=== PATIENT | female | born 1985 | race American Indian/Alaskan Native ===

== ENCOUNTER 2016-09-02 12:43 | Emergency (ER) | payer OTHER ==
[2016-09-02 13:38] VITALS: BP 144/90; PULSE 75; RESP 20; TEMP 98.3; O2SAT 98
--- NOTE | 2016-09-02 14:07 | C.PDOC ---
History Of Present Illness 31 yr old female presents to the ER for suture removal. Patient states 1 month ago she had a tummy tuck and liposuction done in [place] and was told by the surgeon to go to any ER for suture removal. Patient denies fever, chest pain, SOB, nausea, vomiting, abdominal pain, diarrhea, drainage from the area, back pain, weakness or numbness. Time Seen by Provider: 09/02/16 13:49 Chief Complaint (Nursing): Wound Check History Per: Patient History/Exam Limitations: no limitations Onset/Duration Of Symptoms: Days Ago (1 month ago) Past Medical History Reviewed: Historical Data, Nursing Documentation, Vital Signs Vital Signs: Last Vital Signs Temp 98.3 F 09/02/16 13:36 Pulse 75 09/02/16 13:36 Resp 20 09/02/16 13:36 BP 144/90 09/02/16 13:36 Pulse Ox 98 09/02/16 14:07 - Medical History PMH: Gall Bladder Disease (Gallstones) Surgical History: Cholecystectomy (04/2016) Family History: States: No Known Family Hx - Social History Hx Tobacco Use: No Hx Alcohol Use: Yes Hx Substance Use: No - Immunization History Hx Tetanus Toxoid Vaccination: No Hx Influenza Vaccination: Yes Hx Pneumococcal Vaccination: No Review Of Systems Except As Marked, All Systems Reviewed And Found Negative. Constitutional: Negative for: Fever Cardiovascular: Negative for: Chest Pain Respiratory: Negative for: Shortness of Breath Gastrointestinal: Negative for: Nausea, Vomiting, Abdominal Pain, Diarrhea Musculoskeletal: Negative for: Back Pain Skin: Positive for: Other (Suture removal for tummy tuck ) Neurological: Negative for: Weakness, Numbness Physical Exam - Physical Exam Appears: Non-toxic, No Acute Distress Skin: Warm, Dry, No Rash, Other (iliac crest surgical wound, subcuticular stitchs. At the right lateral 6in black wire like loop. No distal or exposed. Back - 4 area of puncture wound where the liposuction was done. ) Head: Atraumatic, Normacephalic Oral Mucosa: Moist Neck: Normal, Normal ROM, Supple Chest: Symmetrical, No Tenderness Cardiovascular: Rhythm Regular, No Murmur Respiratory: Normal Breath Sounds, No Rales, No Rhonchi, No Stridor, No Wheezing Gastrointestinal/Abdominal: Normal Exam, Soft, No Tenderness, No Guarding, No Rebound Extremity: Normal ROM, No Swelling Neurological/Psych: Oriented x3, Normal Speech, Normal Motor ED Course And Treatment O2 Sat by Pulse Oximetry: 98 Disposition - Disposition Referrals: Barry Tejada DO [Staff Provider] - Disposition: HOME/ ROUTINE Disposition Time: 14:05 Condition: GOOD Additional Instructions: Follow up with Surgeon for removal of the "stuck stich" - Clinical Impression Clinical Impression: Visit for suture removal, Encounter for evaluation of wound - Scribe Statement The provider has reviewed the documentation as recorded by the Alexisibrupinder Pinon Provider Attestation: All medical record entries made by the Jordan were at my direction and personally dictated by me. I have reviewed the chart and agree that the record accurately reflects my personal performance of the history, physical exam, medical decision making, and the department course for this patient. I have also personally directed, reviewed, and agree with the discharge instructions and disposition.
== END 2016-09-02 15:07 | disposition home or self-care (01) ==
LOC: C.ER 12:43
DX: Z48.01 Encounter for change or removal of surgical wound dressing (principal)

== ENCOUNTER 2016-11-15 17:02 | Emergency (ER) | payer OTHER ==
[2016-11-15 17:29] VITALS: RESP 18
[2016-11-15 17:51] LABS: RBC URINE 2 /hpf (0-3); URINE BACTERIA RARE (<OCC); URINE BILIRUBIN NEGATIVE (NEGATIVE); URINE BLOOD NEGATIVE (NEGATIVE); URINE COLOR Yellow (YELLOW); URINE GLUCOSE (UA) NORMAL (Normal); URINE KETONE NEGATIVE (NEGATIVE); URINE LEUKOCYTE ESTERASE 1+ Leu/uL (Negative); URINE PROTEIN NEGATIVE (NEGATIVE); URINE UROBILINOGEN NORMAL mg/dL (0.2-1.0); WBC URINE 3 /hpf (0-5)
--- NOTE | 2016-11-15 18:44 | C.PDOC ---
History Of Present Illness The patient, a 31 y/o male, presents to the ED for evaluation of foul-smelling vaginal discharge which began around 3 days ago. Patient notes experiencing similar episode in the past and she was treated for BV at that time. Patient denies fever, chills, back pain, abdominal pain, nausea, vomiting, hematuria, dysuria. She notes she has been sexually active with one partner without protection, partner has no complaints of discharge. . Time Seen by Provider: 11/15/16 17:42 Chief Complaint (Nursing): Female Genitourinary History Per: Patient History/Exam Limitations: no limitations Onset/Duration Of Symptoms: Days (3) Current Symptoms Are (Timing): Still Present Associated Symptoms: denies: Fever, Chills Past Medical History Vital Signs: Last Vital Signs Temp 98.6 F 11/15/16 18:55 Pulse 66 11/15/16 18:55 Resp 18 11/15/16 18:55 BP 136/88 11/15/16 18:55 Pulse Ox 100 11/15/16 19:57 - Medical History PMH: Gall Bladder Disease (Gallstones) Denies: Chronic Kidney Disease Surgical History: Cholecystectomy (04/2016) Family History: States: Unknown Family Hx - Social History Hx Tobacco Use: No Hx Alcohol Use: Yes Hx Substance Use: No - Immunization History Hx Tetanus Toxoid Vaccination: No Hx Influenza Vaccination: Yes Hx Pneumococcal Vaccination: No Review Of Systems Constitutional: Negative for: Fever, Chills Gastrointestinal: Negative for: Nausea, Vomiting, Abdominal Pain Genitourinary: Positive for: Vaginal Discharge. Negative for: Dysuria, Frequency, Hematuria Musculoskeletal: Negative for: Back Pain Physical Exam - Physical Exam Appears: Non-toxic, No Acute Distress Skin: Normal Color, Warm, Dry Head: Atraumatic, Normacephalic Eye(s): bilateral: Normal Inspection Oral Mucosa: Moist Neck: Supple Chest: Symmetrical, No Deformity, No Tenderness Cardiovascular: Rhythm Regular, No Murmur Respiratory: Normal Breath Sounds, No Rales, No Rhonchi, No Wheezing Gastrointestinal/Abdominal: Soft, No Tenderness, No Guarding, No Rebound Back: Normal Inspection, No Vertebral Tenderness, No Paraspinal Tenderness Pelvic: Vaginal Discharge (mild, white ), No Cervical Motion Tenderness, No Adnexal Tenderness Extremity: Normal ROM, Capillary Refill (less than 2 seconds ) Neurological/Psych: Oriented x3, Normal Speech, Normal Cognition Gait: Steady ED Course And Treatment O2 Sat by Pulse Oximetry: 100 (on RA) Pulse Ox Interpretation: Normal Medical Decision Making Medical Decision Making: Impression: 31 y/o female with foul smelling vaginal discharge Plan: * GC/Chlamydia swab * UA * reassess and disposition Progress: GC/chamlydia culture obtained and sent to lab. UA ordered and reviewed. On reassessment, patient is resting comfortably, showing no signs of distress, and is stable for discharge. Patient is advised to follow up with her PMD within 1-2 days for further evaluation. Disposition Counseled Patient/Family Regarding: Diagnosis, Need For Followup, Rx Given - Disposition Disposition: HOME/ ROUTINE Disposition Time: 18:42 Condition: STABLE Additional Instructions: Use medication at bedtime so it doesn't run out. Avoid sexual activity until discharge cleared up. 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 Return to ER for any worse symptoms. Prescriptions: Metronidazole [Metrogel-Vaginal] 1 ea VG HS #7 gel Instructions: Bacterial Vaginosis (ED) - Clinical Impression Clinical Impression: Bacterial vaginosis - PA / STAFF [employer] OFFICER / Resident Statement MD/DO has reviewed & agrees with the documentation as recorded. - Scribe Statement The provider has reviewed the documentation as recorded by the Scribe (Madeleine Hopson) All medical record entries made by the Scribe were at my direction and personally dictated by me. I have reviewed the chart and agree that the record accurately reflects my personal performance of the history, physical exam, medical decision making, and the department course for this patient. I have also personally directed, reviewed, and agree with the discharge instructions and disposition.
[2016-11-15 18:56] VITALS: BP 136/88; PULSE 66; TEMP 98.6
[2016-11-15 19:38] VITALS: O2SAT 100
== END 2016-11-15 18:56 | disposition home or self-care (01) ==
LOC: C.ER 17:02
DX: N76.0 Acute vaginitis (principal)

== ENCOUNTER 2018-03-27 21:06 | Emergency (ER) | payer OTHER ==
[2018-03-27 21:43] LABS: HCG,QUALITATIVE URINE POSITIVE (NEGATIVE)
[2018-03-27 21:46] LABS: SQUAMOUS EPITHIAL 25 /hpf (0-5); URINE BACTERIA RARE (<OCC); URINE BILIRUBIN NEGATIVE (NEGATIVE); URINE BLOOD NEGATIVE (NEGATIVE); URINE CLARITY Hazy (Clear); URINE COLOR Yellow (YELLOW); URINE GLUCOSE (UA) NORMAL (Normal); URINE LEUKOCYTE ESTERASE NEG Leu/uL (Negative); URINE PROTEIN NEGATIVE (NEGATIVE)
[2018-03-27] MEDS ORDERED: Sodium Chloride 0.9% 1,000 ML IV ONE (21:51)
[2018-03-27 22:19] LABS: BASO # 0.1 K/uL (0.0-0.2); BASO % 0.6 % (0.0-2.0); EOS # 0.1 K/uL (0.0-0.7); EOS % 0.6 % (0.0-4.0); HEMOGLOBIN 11.7 g/dL (11.0-16.0); LYMPH # 2.6 K/uL (1.0-4.3); LYMPH % 25.2 % (20.0-40.0); MEAN CORPUSCULAR HEMOGLOBIN 28.6 pg (27.0-31.0); MEAN CORPUSCULAR HGB CONC 33.2 g/dL (33.0-37.0); MEAN PLATELET VOLUME 9.6 fL (7.2-11.7); MONO # 0.7 K/uL (0.0-0.8); MONO % 6.9 % (0.0-10.0); NEUT # 6.7 K/uL (1.8-7.0); NEUT % 66.7 % (50.0-75.0); NRBC % 0.1 % (0.0-2.0); RBC 4.1 Mil/uL (3.80-5.20); RED CELL DISTRIBUTION WIDTH 14.6 % (11.5-14.5); WHITE BLOOD COUNT 10.1 K/uL (4.8-10.8)
[2018-03-27 22:30] LABS: ALB/GLOB RATIO 1.2 (1.0-2.1); ALBUMIN 4.6 g/dL (3.5-5.0); BLOOD UREA NITROGEN 16 mg/dL (7-17); CALCIUM 9.7 mg/dl (8.6-10.4); GFR NON-AFRICAN AMERICAN > 60
[2018-03-27 22:32] LABS: ALT/SGPT 31 U/L (9-52); AST/SGOT 26 U/L (14-36)
--- NOTE | 2018-03-27 23:31 | C.PDOC ---
History Of Present Illness 32 year old female patient presents to the ER c/o lower abdominal pain with urinary frequency for x2 days. Patient's LMP 02/18/18. Patient reports she usually has a regular menses. Patient denies dysuria, nausea, vomiting, back pain, vaginal discharge and vaginal bleeding. Time Seen by Provider: 03/27/18 21:19 Chief Complaint (Nursing): Female Genitourinary History Per: Patient History/Exam Limitations: no limitations Onset/Duration Of Symptoms: Days (x2 ) Current Symptoms Are (Timing): Still Present Past Medical History Reviewed: Historical Data, Nursing Documentation, Vital Signs Vital Signs: Last Vital Signs Temp 98.4 F 03/27/18 21:12 Pulse 77 03/27/18 21:12 Resp 20 03/27/18 21:12 BP 149/93 H 03/27/18 21:12 Pulse Ox 97 03/27/18 21:12 - Medical History PMH: Gall Bladder Disease (Gallstones) Surgical History: Cholecystectomy (04/2016) Family History: States: Unknown Family Hx - Social History Hx Tobacco Use: No Hx Alcohol Use: Yes Hx Substance Use: No - Immunization History Hx Tetanus Toxoid Vaccination: No Hx Influenza Vaccination: Yes Hx Pneumococcal Vaccination: No Review Of Systems Except As Marked, All Systems Reviewed And Found Negative. Gastrointestinal: Positive for: Abdominal Pain (low). Negative for: Nausea, Vomiting Genitourinary: Negative for: Vaginal Discharge, Vaginal Bleeding Musculoskeletal: Negative for: Back Pain Physical Exam - Physical Exam Appears: Well, Non-toxic, No Acute Distress Skin: Normal Color, Warm, Dry Head: Atraumatic, Normacephalic Eye(s): bilateral: Normal Inspection, EOMI Nose: Normal Oral Mucosa: Moist Neck: Normal ROM, Supple Chest: Symmetrical, No Deformity Cardiovascular: Rhythm Regular Respiratory: Normal Breath Sounds, No Accessory Muscle Use Gastrointestinal/Abdominal: Soft, Tenderness (suprapubic), No Distention, No Guarding, No Rebound Back: No CVA Tenderness, No Vertebral Tenderness Extremity: Normal ROM (x4) Neurological/Psych: Oriented x3, Normal Speech Gait: Steady ED Course And Treatment - Laboratory Results Result Diagrams: 03/27/18 22:11 03/27/18 22:11 O2 Sat by Pulse Oximetry: 97 (RA) Pulse Ox Interpretation: Normal - CT Scan/US US transvaginal Other Rad Studies (CT/US): Read By Radiologist, Radiology Report Reviewed CT/US Interpretation: Name:JERRELL HSU Exam Date:Mar 27, 2018 10:46:52 PM EDT. Modality Type:SD\US\TX\SR. Description:US - OB 1ST TRIMESTER. Gender:F Laterality:Not applicable. :84 Referring Physician:Kylie Coulter (PASTOR). CLINICAL HISTORY: Pelvic pain. Positive hCG. TECHNIQUE: Realtime sonographic images were obtained in multiple projections. COMMENTS: Questionable gestational sac is seen with the mean sac diameter of 5.9 mm. No yolk sac or pole is identified. heart motion is not detected. Trace free fluid is seen within the pelvic cul-de-sac. The right ovary measures 4.2 x 3.1 x 3.3 cm. The left ovary measures 1.4 x 1.1 x 1.4 cm. The left ovary is free of masses. Comp cain cyst is seen within the right ovary measuring 2.8 x 2.4 x 2.5 cm. IMPRESSION: 1. Questionable early gestational sac. No yolk sac or pole identified. If clinically warranted consider follow up study in 4-7 days. 2. Trace free fluid within the pelvic cul-de-sac. 3. Right ovarian complex cyst. Progress Note: impression: lower abdominal pain. plans: -- chem labs. -- blood work. -- IV fluids. -- tylenol. -- HCG. -- UA. -- US transvaginal. On re-evaluation, patient is resting comfortably, abdomen remains soft, and patient is tolerating PO. Pt was given work up results and instructed to f/u with OBGYN in 1-2 days. Disposition - Disposition Disposition: HOME/ ROUTINE Disposition Time: 23:47 Condition: STABLE Additional Instructions: Follow up with your OBGYN in 1-2 days. Your Beta HCG in 2300 today. Return to ER if symptoms persist or worsen. Prescriptions: Vit 75/Iron/Folic/Om3 [Daily Combo Pack] 1 each PO DAILY #30 combo..pkg Instructions: Ovarian Cyst (DC) Forms: [employer] (Irish) - Clinical Impression Clinical Impression: , Ovarian cyst - PA / BUS PERSON / Resident Statement / has reviewed & agrees with the documentation as recorded. - Scribe Statement The provider has reviewed the documentation as recorded by the Jordan Knott Do All medical record entries made by the Scribe were at my direction and personally dictated by me. I have reviewed the chart and agree that the record accurately reflects my personal performance of the history, physical exam, medical decision making, and the department course for this patient. I have also personally directed, reviewed, and agree with the discharge instructions and disposition.
[2018-03-27 23:59] VITALS: BP 146/90; PULSE 74; RESP 18; TEMP 98.5
--- NOTE | 2018-03-28 10:22 | US ---
Indication: Pain Comparison: None Technique: Transvaginal pelvic ultrasound Findings: The uterus measures approximately 9.1 x 5.4 x 6.2 cm. Anteverted. Cervix length measures approximately 4.5 cm. 0.6 cm cystic structure suspected to represent a gestational sac, too small for gestational age calculation. No evidence of yolk sac or pole. Trace pelvic free fluid. The right ovary measures 4.2 x 3.1 x 3.3 cm and contains complex cyst measuring 2.8 x 2.4 x 2.5 cm. The left ovary measures 1.4 x 1.1 x 1.4 cm. Blood flow was demonstrated to both ovaries. Impression: Suspect early gestational sac. No yolk sac or pole identified at this time. Recommend correlation with quantitative beta HCG and follow-up ultrasound. Trace pelvic free fluid. Complex right ovarian cyst measures approximately 2.8 cm maximally. Preliminary impression was provided by [employer].
[2018-03-30 13:40] VITALS: O2SAT 97
== END 2018-03-28 00:04 | disposition home or self-care (01) ==
LOC: C.ER 21:06
DX: O34.80 Maternal care for other abnormalities of pelvic organs, unspecified trimester (principal); N83.201 Unspecified ovarian cyst, right side; Z3A.00 Weeks of gestation of pregnancy not specified
CPT/HCPCS: 76830; 80053; 81001; 84702; 84703; 85025; 86850; 86900; 87086; 96360; 99284; J7030

== ENCOUNTER 2018-10-25 11:38 | Emergency (ER) | payer OTHER ==
[2018-10-25 11:55] VITALS: BP 145/104; PULSE 72; RESP 18; TEMP 99; O2SAT 98
--- NOTE | 2018-10-25 12:13 | C.PDOC ---
History Of Present Illness NEW ONSET L NECK/UPPER BACK PAIN X 3 DAYS. LOCALIZED WORSE W MOVEMENT. LIMITED RELIEF W MOTRIN 800 MG, NONE TAKEN TODAY. NO ASSOCA WEAK/NUMB. PS FEELS STRAIN FROM BRA STRAP. EXAM NONTOXIC NECK LIMITED FULL L LAT ROTATION; +SPASM L UPPER BACK/LATERAL NECK. NO SWELL. EXT AROM WO DIFF NEURO NO FOCAL DEF REMAINDER NEG NECK TORTICOLLIS NO ACUTE NEURO DEF. STOP PAIN PROTOCOL, DC RX Time Seen by Provider: 10/25/18 12:00 Chief Complaint (Nursing): Back Pain History Per: Patient History/Exam Limitations: no limitations Onset/Duration Of Symptoms: Days Current Symptoms Are (Timing): Still Present Severity: Moderate Past Medical History Reviewed: Historical Data, Nursing Documentation, Vital Signs Vital Signs: Last Vital Signs Temp 99 F 10/25/18 11:51 Pulse 72 10/25/18 11:51 Resp 18 10/25/18 11:51 BP 145/104 H 10/25/18 11:51 Pulse Ox 98 10/25/18 11:51 Primary Care Provider: Barry Tejada Medical History PMH: Gall Bladder Disease, HTN Denies: Chronic Kidney Disease Surgical History: Cholecystectomy (04/2016) Family History: States: No Known Family Hx - Social History Hx Tobacco Use: No Hx Alcohol Use: Yes Hx Substance Use: No - Immunization History Hx Tetanus Toxoid Vaccination: No Hx Influenza Vaccination: Yes Hx Pneumococcal Vaccination: No Review Of Systems Except As Marked, All Systems Reviewed And Found Negative. Musculoskeletal: Positive for: Neck Pain, Back Pain Neurological: Negative for: Weakness, Numbness Physical Exam - Physical Exam Appears: Non-toxic Skin: Normal Color, Warm, Dry Head: Atraumatic, Normacephalic Eye(s): bilateral: Normal Inspection Neck: Decreased ROM (limited full left lateral rotation), Supple, Other (spasm to left lateral neck) Cardiovascular: Rhythm Regular Respiratory: Other (NARD) Back: Muscle Spasm (muscle spasm to left upper back) Extremity: Normal ROM (AROM without difficulty) Neurological/Psych: Oriented x3, Normal Speech, Normal Motor, Normal Sensation ED Course And Treatment O2 Sat by Pulse Oximetry: 98 (RA) Pulse Ox Interpretation: Normal Medical Decision Making Medical Decision Making: Plan: --Tylenol PO --Flexeril PO --Toradol IM --Lidoderm Patch NECK TORTICOLLIS NO ACUTE NEURO DEF. STOP PAIN PROTOCOL, DC RX Disposition Counseled Patient/Family Regarding: Diagnosis, Need For Followup, Rx Given - Disposition Referrals: YOUR,PMD [Other] Disposition: HOME/ ROUTINE Disposition Time: 12:13 Condition: IMPROVED Prescriptions: Acetaminophen [Tylenol Extra Strength] 2 tab PO Q6 #30 tablet Cyclobenzaprine [Flexeril] 10 mg PO TID #15 tab Lidocaine 5% [Lidoderm] 1 ea TD PRN PRN #10 patch PRN Reason: Pain, Moderate (4-7) Instructions: Torticollis (DC), Neck Stretches Forms: [employer] (Palestinian), Work Excuse - Clinical Impression Clinical Impression: Torticollis, acute, Upper back pain - Scribe Statement The provider has reviewed the documentation as recorded by the Alexisibrupinder Boateng Provider Attestation: All medical record entries made by the Alexisibe were at my direction and personally dictated by me. I have reviewed the chart and agree that the record accurately reflects my personal performance of the history, physical exam, medical decision making, and the department course for this patient. I have also personally directed, reviewed, and agree with the discharge instructions and disposition.
[2018-10-25] MEDS ORDERED: Lidocaine 5% Patch TD STA (12:15)
[2018-10-25] MEDS ORDERED: Lidocaine 5% Patch TD ONE (12:28)
== END 2018-10-25 12:39 | disposition home or self-care (01) ==
LOC: C.ER 11:38
DX: M43.6 Torticollis (principal); M54.6 Pain in thoracic spine; I10 Essential (primary) hypertension
CPT/HCPCS: 96372; 99283; J1885